=== PATIENT | female | born 1945 | race Caucasian/White ===

== ENCOUNTER 2018-11-22 19:19 | Emergency (ER) | payer MEDICARE ==
[~2018-11-22] VITALS: Ht 165.1 cm; Wt 62.8 kg
[2018-11-22 20:27] LABS: BASOPHILS # (AUTO) 0.1 X10'3 (0-0.2); BASOPHILS % (AUTO) 0.9 % (0-1); EOSINOPHILS # (AUTO) 0.1 X10'3 (0-0.9); EOSINOPHILS % (AUTO) 1.7 % (0-6); HEMATOCRIT 43.3 % (35.0-45.0); LYMPHOCYTES # (AUTO) 1.1 X10'3 (1.1-4.8); LYMPHOCYTES % (AUTO) 18.1 % (21-51); MEAN CORPUSCULAR HEMOGLOBIN 30.8 PG (27.0-31.0); MEAN CORPUSCULAR HGB CONC 34.6 g/dL (33.0-36.5); MEAN PLATELET VOLUME 6.6 FL (7.4-10.4); MONOCYTES # (AUTO) 0.4 X10'3 (0-0.9); MONOCYTES % (AUTO) 6.7 % (2-12); NEUTROPHILS # (AUTO) 4.5 X10'3 (1.8-7.7); NEUTROPHILS % (AUTO) 72.6 % (42-75); PLATELET COUNT 251 X10'3 (140-440); RED BLOOD COUNT 4.87 X10'6 (4.20-5.60); RED CELL DISTRIBUTION WIDTH 13.5 % (11.5-14.5); WHITE BLOOD COUNT 6.2 X10'3 (4.5-11.0)
[2018-11-22 20:37] LABS: ALANINE AMINOTRANSFERASE 23 U/L (12-78); ALBUMIN 3.9 G/DL (3.4-5.0); ALBUMIN/GLOBULIN RATIO 1.1 (1.1-1.5); ALKALINE PHOSPHATASE 73 IU/L (46-116); ANION GAP 9 (8-16); ASPARTATE AMINO TRANSFERASE 16 U/L (10-37); BILIRUBIN,TOTAL 0.4 MG/DL (0.1-1.0); BLOOD UREA NITROGEN 19 MG/DL (7-18); CALCIUM 9.9 MG/DL (8.5-10.1); CHLORIDE 104 MMOL/L (99-107); CREATININE 0.73 MG/DL (0.40-0.90); GLUCOSE 96 MG/DL (70-104); LIPASE 130 U/L (73-393); POTASSIUM 3.7 MMOL/L (3.5-5.1); SODIUM 138 MMOL/L (135-145); TOTAL PROTEIN 7.3 G/DL (6.4-8.2); eGFR 78 ML/MIN
[2018-11-22 20:47] LABS: CLARITY,URINE CLEAR (Clear); COLOR,URINE YELLOW (Yellow); GLUCOSE, URINE NEGATIVE (Neg); KETONES,URINE 40 mg/dl (Neg); LEUKOCYTE ESTERASE ,URINE NEGATIVE (Neg); NITRITES, URINE NEGATIVE (Neg); OCCULT BLOOD,URINE NEGATIVE (Neg); PROTEIN,URINE NEGATIVE (Neg); UROBILINOGEN,URINE 0.2 E.U/dL (0.2-1.0)
[2018-11-22 20:51] LABS: UA COLLECTION TYPE CLN CATCH MIDSTREAM
[2018-11-22 21:59] VITALS: BP 138/100
== END 2018-11-22 22:09 | disposition home or self-care (01) ==
LOC: ER 19:20
DX: R10.13 Epigastric pain (principal); Z98.890 Other specified postprocedural states
CPT/HCPCS: 36415; 74176; 80053; 81003; 83690; 85025; 85610; 99284

== ENCOUNTER 2024-02-22 13:10 | Outpatient (CLI) | payer MEDICARE | END 2024-02-22 23:59 | disposition home or self-care (01) | LOC: RAD 13:10 | PROVIDERS: ATTEND Internal Medicine | DX: R10.13 Epigastric pain (principal) | CPT/HCPCS: 74150 ==

== ENCOUNTER 2025-04-04 09:58 | Outpatient (CLI) | payer MEDICARE ==
--- NOTE | 2025-04-05 03:30 | CONSULTATION ---
DATE OF CONSULTATION: 04/04/2025 DICTATING PHYSICIAN: Clari Steen M.S., [facility] MODIFIED BARIUM SWALLOW STUDY REPORT REFERRING PHYSICIAN: Mar Perez. HISTORY OF PRESENT ILLNESS: The patient is an 79-year-old female and consents to this evaluation. History was obtained from the patient and medical records. The patient is a poor historian and so I did gather some history from the patient's when he was there for the results of the evaluation. The patient reports symptoms of dysphagia including feeling that food will not go down when she is swallowing. She reports that it feels as if there is something on the right side of the throat and that this has been occurring for several years at this point. CURRENT DIET: A typical breakfast consists of cereal and milk. She does not snack in the morning. Typical lunch is some type of a frozen sandwich. She snacks in the afternoon on mint chip ice cream. Dinner is eaten at 6 p.m. and may be meat, potatoes, and vegetables. However, sometimes she will avoid the meat or will have it ground with gravy because of the difficulty with swallowing meat. She then has ice cream right after dinner and goes to bed between 9:00 and 10:00 p.m. PARAMETERS: The patient is seated in a lateral 90-degree view and administered the usual protocol of thin and nectar-thick liquids, puree and solid consistencies, as well as self-regulated boluses of thin liquids from a cup. RESULTS: In the oral stage of the swallow, lingual strength is mildly reduced. There is a mild to moderate oral residue residing on the tongue base in the pharyngeal stage of the swallow. Swallow initiation for the most part is within functional limits. However, for the self-regulated bolus with thin liquid from the cup, the patient took a rather large swallow and so it was delayed to the level of the piriformis. Tongue base retraction is mild to moderately reduced. Elevation of the hyothyroid complex is accomplished with full range of motion. There is a moderate pharyngeal residue noted after the tail of the bolus passes with PES opening being moderately decreased for the thin liquids. It was noted in this lateral plane that below that PES opening that the esophagus appears to be narrowed and so there was extended transit time for the bolus through the esophagus below the level of the PES opening. In terms of airway safety, at no time was the patient noted to penetrate or aspirate on any of the bolus sizes or consistencies. ANTERIOR-POSTERIOR VIEW: In the AP plane, the bolus split symmetrically between the piriform sinuses and there was proximal movement of the bolus noted. IMPRESSION: The patient demonstrates what appears to be a moderate pharyngoesophageal stage swallowing disorder characterized by reduced tongue base retraction. What appears to be a narrowed esophagus below the level of the PES opening and proximal movement of the boluses in the AP view. DIAGNOSES: R13.14, dysphagia, pharyngoesophageal phase; R47.02, dysphasia. PATIENT EDUCATION: Immediately following modified barium swallow study, the patient and her were able to view the results. The patient was able to see how the current status of the swallowing mechanism decreases her ability to swallow normally. She was educated on a recommendation for speech therapy to strengthen the tongue base and agreed to participate at this time. She was also educated on recommendation for a GI consult regarding potential dilation of the esophagus. RECOMMENDATIONS: 1. It is recommended that the patient be referred for a GI consult regarding potential dilation of the esophagus. 2. It is recommended that the patient receive swallowing therapy 1 time weekly for 12 weeks to improve the strength of the swallowing musculature to ensure airway safety protection and prevent aspiration. LONG-TERM GOALS: The patient will maintain adequate hydration/nutrition with optimum safety and efficiency of swallow function on p.o. intake by being able to complete her swallowing exercises with minimal cues across 2 sessions. PROGNOSIS: Prognosis for the patient is fair to good considering family support, patient difficulty with recall, and need for further referral. FUNCTIONAL ORAL INTAKE: The FOIS was administered to establish and document a change in the functional eating activities of this patient over time. This is a 7-point scale with 1 indicating no oral intake and totally tube dependent and 7 indicating total oral intake with no restrictions. This patient received a 5 which indicates total oral intake of multiple consistencies requiring special preparation, that special preparation being that for the meat textures. G-CODE: [id number] Thank you very much for asking me to participate in the care of this kind patient. Should you have any questions regarding this evaluation or recommendations, please do not hesitate to contact me at [phone]. During this examination, 4.17 minutes of fluoroscopy time and 14.49 CAK mGy were utilized. Clari Steen M.S., [facility] TID: [id number] RECEIPT: [id number] GERALD [facility]NOX
== END 2025-04-04 23:59 | disposition home or self-care (01) ==
LOC: RAD 09:58
PROVIDERS: ATTEND General Practice
DX: R13.14 Dysphagia, pharyngoesophageal phase (principal); R47.02 Dysphasia
CPT/HCPCS: 74230